=== PATIENT | female | born 1955 | race Caucasian/White ===

== ENCOUNTER → 2016-12-07 | Outpatient (CLI) | payer MEDICARE | END | disposition home or self-care (01) | LOC: GMAL 12:14 | PROVIDERS: ATTEND Family Medicine | DX: D53.9 Nutritional anemia, unspecified (principal) ==

== ENCOUNTER → 2016-12-11 | Outpatient (CLI) | payer BC, MEDICARE | END | disposition home or self-care (01) | LOC: GMA 18:33 | PROVIDERS: ATTEND Nurse Practitioner Family | DX: N39.0 Urinary tract infection, site not specified (principal) ==

== ENCOUNTER → 2017-05-05 | Outpatient (CLI) | payer MEDICARE | END | disposition home or self-care (01) | LOC: GMAL 10:42 | PROVIDERS: ATTEND Family Medicine | DX: D53.9 Nutritional anemia, unspecified (principal) ==

== ENCOUNTER 2017-05-21 22:40 | Emergency (ER) | payer MEDICARE ==
[2017-05-21 22:59] VITALS: TEMP 98.6; O2SAT 97
[2017-05-21] MEDS ORDERED: MORPHINE SULFATE INJ 10 MG/ML VIAL IM ONE (23:10)
[2017-05-21] MEDS ORDERED: MORPHINE SULFATE INJ 10 MG/ML VIAL ONE (23:10)
--- NOTE | 2017-05-21 23:13 | ED.PDOC ---
History of Present Illness - General Chief Complaint: Trauma Stated Complaint: fell on buttocks Time Seen by Provider: 05/21/17 23:10 Source: patient Exam Limitations: no limitations - History of Present Illness Initial Comments: Patient presents after falling from a standing position backwards and landing on her buttocks. She complains of tailbone pain just over the coccyx. No previous trauma to the area. She says that she had a "bone scan" recently and was told that she had osteoporosis. Pain is non-radiating, worse with movement, better with rest. Timing/Duration: 1/2 hour Severity: moderate Improving Factors: rest Worsening Factors: movement Associated Symptoms: denies symptoms Allergies/Adverse Reactions: Allergies NO KNOWN ALLERGY Allergy (Verified 05/21/17 22:51) Home Medications: Ambulatory Orders Amitriptyline HCl 10 mg PO BEDTIME 05/21/17 Aspirin [(None)] 325 mg PO QD 05/21/17 Metformin HCl [Metformin HCl ER] 500 mg PO BID 05/21/17 Oxcarbazepine [Trileptal] 150 mg PO BID 05/21/17 Pramipexole Dihydrochloride [Pramipexole Dihydrochlori] 0.5 mg PO BEDTIME Pravastatin Sodium 80 mg PO BEDTIME 05/21/17 Propranolol HCl 80 mg PO DAILY 05/21/17 Topiramate 300 mg PO BID 05/21/17 Review of Systems - Review of Systems Constitutional: States: no symptoms reported EENTM: States: no symptoms reported Respiratory: States: no symptoms reported Cardiology: States: no symptoms reported Gastrointestinal/Abdominal: States: no symptoms reported Genitourinary: States: no symptoms reported Musculoskeletal: States: see HPI Skin: States: no symptoms reported Neurological: States: no symptoms reported Endocrine: States: see HPI Hematologic/Lymphatic: States: no symptoms reported Past Medical History (General) - Patient Medical History Hx Stroke: Yes - 4 years ago Hx Hypertension: Yes Hx Diabetes: Yes Surgical History: appendectomy, Hysterectomy, other - Vaccination History Hx Tetanus, Diphtheria Vaccination: Yes Hx Influenza Vaccination: No Hx Pneumococcal Vaccination: No - Social History Hx Tobacco Use: No Hx Substance Use Treatment: No Family Medical History - Family History Mother Family History: Unknown Physical Exam - Physical Exam General Appearance: Alert Cardiovascular/Chest: regular rate, rhythm Gastrointestinal/Abdominal: normal bowel sounds, non tender, soft Back Exam: other - No vertebral spinous process tenderness. Mild TTP over coccyx. Abduction of the hips bilaterally elicits the pain. Straight leg raises are negative. Progress - Progress Progress: 05/22/17 00:46 CT Lumbar spine showed midline mildly displaced sacral fracture. Patient given crutches, pain meds, and follow up instructions. 05/22/17 00:48 Patient given RX for hydrocodone/APAP 5/325 1-2 tabs po q4-6 hours prn #45 Departure - Departure Clinical Impression: Fracture of sacrum Disposition: Discharge to Home or Self Care Condition: Good Departure Forms: ED Discharge - Pt. Copy, Patient Portal Self Enrollment Instructions: DI for Trauma Diet: resume usual diet Activity: as per physical therapy Referrals: Dennis Fortune III, MD [Primary Care Provider] - 1-2 Weeks Home Medications: Ambulatory Orders Amitriptyline HCl 10 mg PO BEDTIME 05/21/17 Aspirin [(None)] 325 mg PO QD 05/21/17 Metformin HCl [Metformin HCl ER] 500 mg PO BID 05/21/17 Oxcarbazepine [Trileptal] 150 mg PO BID 05/21/17 Pramipexole Dihydrochloride [Pramipexole Dihydrochlori] 0.5 mg PO BEDTIME Pravastatin Sodium 80 mg PO BEDTIME 05/21/17 Propranolol HCl 80 mg PO DAILY 05/21/17 Topiramate 300 mg PO BID 05/21/17 Additional Instructions: Follow up with Dr. Kimble on wednesday or wednesday. Use crutches for ambulation. Sit on a ringed pillow for comfort. Take medication as prescribed.
--- NOTE | 2017-05-21 23:48 | RAD ---
Examination: XR LUMBAR SPINE 2-3 VIEWS dated 05/21/2017 11:01 PM CDT History: fall Comparison: MRI of the lumbar spine from 2005 Technique: Frontal and lateral views of the lumbar spine with a coned down view of the lumbosacral junction. FINDINGS: Grade 1 anterolisthesis L5 on S1, slightly progressed from 2006. Suspect L5 spondylolysis. The remainder of the lumbar vertebral bodies demonstrate normal height and alignment. Mild disc space height loss L5-S1. Otherwise disc spaces are relatively well-preserved. IMPRESSION: Slightly progressed grade 1 anterolisthesis L5 on S1 with suspected L5 spondylolysis. Electronically signed by: Han Wilson MD 05/21/2017 11:46 PM CDT
--- NOTE | 2017-05-21 23:49 | RAD ---
Examination: XR SACRUM COCCYX 2 OR MORE VIEWS dated 05/21/2017 11:01 PM CDT History: fall Comparison: None Technique: Two views of the sacrum and coccyx FINDINGS AND IMPRESSION: There is slight lucency extending through the mid sacrum which may represent a nondisplaced fracture. CT may be useful for further evaluation. Electronically signed by: Han Wilson MD 05/21/2017 11:48 PM CDT
--- NOTE | 2017-05-22 00:30 | CT ---
EXAM: Lumbar Spine (accession [id number]), Pelvis (accession [id number]) CLINICAL INDICATION: 62-year-old female with possible sacral fracture. COMPARISON: None. TECHNIQUE: CT of the lumbar spine was performed without contrast. CT of the pelvis was performed without contrast. This exam was performed according to our departmental dose optimization program which includes use of automated exposure control, adjustment of the mA and/or kV according to patient size and/or use of iterative reconstruction technique. FINDINGS: Lumbar spine: Grade 1 anterolisthesis of L5 relative to S1 secondary to severe degenerative change of the bilateral facets at that level without findings to suggest clear pars interarticularis defects, however difficult to visualize secondary to severe facet degenerative change. There is normal alignment of the lumbar spine without fracture or subluxation. The facets are normal in alignment bilaterally. The posterior elements including the spinous processes are intact. Morphology and attenuation of the vertebral bodies and intervertebral disc spaces is within normal limits. The pre-and paravertebral soft tissues are within normal limits. Incidentally noted calcification within the lower pole of the bilateral kidneys compatible with nonobstructing calculus. Multiple bilateral renal cystic structures the largest of which measures up to 4.3 cm with Hounsfield units measuring less than 20 compatible with simple renal cysts. Pelvis: Soft tissues: The bowel is within normal limits. The appendix is within normal limits. No free air. Hazy appearance of the presacral soft tissues compatible with trace volume of hemorrhage secondary to mildly displaced fracture of S4, S5. IMPRESSION: 1. Hazy appearance of the presacral soft tissues compatible with trace volume of hemorrhage secondary to mildly displaced fracture of S4, S5. 2. Grade 1 anterolisthesis of L5 relative to S1 secondary to severe degenerative change of the bilateral facets at that level without findings to suggest clear pars interarticularis defects, however difficult to visualize secondary to severe facet degenerative change. 3. Bilateral large renal cysts, the largest of which measures up to 4.3 cm. Electronically signed by: Luna Steve MD 05/22/2017 12:29 AM CDT Workstation: [id number]
[2017-05-22] MEDS ORDERED: KETOROLAC TROMETHAMINE INJ 30 MG/ML VIAL IM ONE (00:45)
[2017-05-22 01:14] VITALS: BP 104/66
== END 2017-05-22 01:17 | disposition home or self-care (01) ==
LOC: ER 22:40
DX: S32.10XA Unspecified fracture of sacrum, initial encounter for closed fracture (principal); M81.0 Age-related osteoporosis without current pathological fracture; I10 Essential (primary) hypertension; E11.9 Type 2 diabetes mellitus without complications; Z86.73 Personal history of transient ischemic attack (TIA), and cerebral infarction without residual deficits; Z79.82 Long term (current) use of aspirin; Z79.899 Other long term (current) drug therapy; W19.XXXA Unspecified fall, initial encounter
CPT/HCPCS: 72100; 72131; 72192; 72220; J1885; J2270

== ENCOUNTER → 2017-05-26 | Outpatient (CLI) | payer MEDICARE ==
--- NOTE | 2017-05-29 15:27 | RAD ---
Examination: XR SACRUM COCCYX 2 OR MORE VIEWS dated 05/26/2017 3:11 PM CDT History: SACROCOCCYGEAL DISORDERS Comparison: 05/21/2017 Technique: Two views of the sacrum and coccyx FINDINGS AND IMPRESSION: There remains lucency extending through the mid sacrum and coccyx compatible with known sacral fracture. There is no change in alignment as compared to the prior exam. Unchanged grade 1 anterolisthesis L5 on S1. Electronically signed by: Han Wilson MD 05/29/2017 3:26 PM CDT
== END | disposition home or self-care (01) ==
LOC: RAD 15:04
PROVIDERS: ATTEND Orthopaedic Surgery
DX: M53.3 Sacrococcygeal disorders, not elsewhere classified (principal)

== ENCOUNTER → 2017-07-29 | Outpatient (CLI) | payer MEDICARE ==
--- NOTE | 2017-08-09 16:42 | MAM ---
EXAM DESCRIPTION: 3D Screening BILATERAL : Digital Mammography. CLINICAL HISTORY: 62 years Female SCREENING . No complaints. Remote family history of breast cancer. Postmenopausal. No HRT. Prior right breast biopsy. COMPARISON: 2-D digital screening bilateral study 07/28/2016 and 07/04/2015.. Report from prior examination also reviewed. TECHNIQUE: Bilateral CC and MLO projection full-field images, 3-D tomosynthesis digital mammographic technique. Also bilateral synthesized CC/ MLO full-field images. CAD not utilized. FINDINGS: The breast parenchymal density pattern is: Heterogeneously dense breast tissue, which may obscure small masses. No skin thickening or nipple retraction bilateral solitary microcalcifications. Bilateral vascular calcifications. No focal, stellate mass or density, focal asymmetry , and no suspicious microcalcifications bilaterally. Stable mammograms compared to prior studies, taking into account differences in mammographic technique IMPRESSION: BI-RADS CATEGORY: 2 - BENIGN FINDINGS. FOLLOW UP: Routine digital bilateral screening, one year interval from July 2017. Written communication explaining the IMPRESSION and follow-up, will be mailed to the patient and referring health care provider. According to the [employer], yearly mammograms are recommended starting at age 40 and continuing as long as a woman is in good health. Any breast change noted on a breast self-exam should be reported promptly to the patient's healthcare provider. Breast MRI is recommended for women with an approximately 20-25% or greater lifetime risk of breast cancer, including women with a strong family history of breast or ovarian cancer and women who have been treated for Hodgkin's disease. A negative mammographic report should not delay tissue diagnosis in patients with significant clinical history or physical findings. Extremely dense breast tissue limits the sensitivity of digital mammography. Electronically signed by: Pablo Villa MD 08/09/2017 4:41 PM [facility]
== END ==
LOC: MAMMO 14:49
PROVIDERS: ATTEND Family Medicine
DX: Z12.31 Encounter for screening mammogram for malignant neoplasm of breast (principal)
CPT/HCPCS: 77063; G0202

== ENCOUNTER → 2017-07-30 | Outpatient (CLI) | payer MEDICARE | LOC: GMAL 11:48 | PROVIDERS: ATTEND Family Medicine | DX: N39.0 Urinary tract infection, site not specified (principal) ==

== ENCOUNTER → 2017-11-08 | Outpatient (CLI) | payer MEDICARE | LOC: GMAL 11:01 | PROVIDERS: ATTEND Family Medicine | DX: D53.9 Nutritional anemia, unspecified (principal) ==

== ENCOUNTER → 2018-02-10 | Outpatient (CLI) | payer MEDICARE ==
--- NOTE | 2018-02-11 08:06 | MRI ---
Study: MRI of the Right Wrist. Indication: PAIN Technique: Multiplanar, multi sequence MRI of the right wrist was obtained without intravenous contrast. Comparison: None. Findings: Examination is mild to moderately motion degraded. Fairly pronounced tenosynovitis and tendinosis of the tendons of the first extensor tendon compartment noted extending from the level of the distal radial metadiaphysis to their insertion sites. Associated mild longitudinal fissuring of the tendons noted but without transection. Remaining extensor tendons, flexor tendons, flexor retinaculum, median nerve, and ulnar nerve are unremarkable. Degenerative signal scapholunate ligament and TFC without fluid filled tear of either structure. 2 mm negative ulnar variance. 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 Patchy areas of subchondral marrow change noted throughout the lunate at its proximal and distal aspects as well as the proximal capitate. Type II lunate present. Impression: Tenosynovitis, tendinosis, and longitudinal fissuring of the tendons of the first extensor tendon compartment. No transection or retraction. Scattered mild to moderate osteoarthritic changes throughout the wrist as detailed above. Degenerative signal scapholunate ligament and TFC without fluid-filled tear. No acute fracture. Electronically signed by: Deacon Miner MD 02/11/2018 8:05 AM CDT
== END ==
LOC: MRI 09:11
PROVIDERS: ATTEND Family Medicine
DX: M25.531 Pain in right wrist (principal); M77.8 Other enthesopathies, not elsewhere classified

== ENCOUNTER → 2018-02-15 | Outpatient (CLI) | payer MEDICARE | LOC: GMAL 14:24 | PROVIDERS: ATTEND Family Medicine | DX: N39.0 Urinary tract infection, site not specified (principal) ==

== ENCOUNTER → 2018-03-03 | Outpatient (CLI) | payer MEDICARE | LOC: GMAL 11:06 | PROVIDERS: ATTEND Family Medicine | DX: N39.0 Urinary tract infection, site not specified (principal) ==

== ENCOUNTER → 2018-03-08 | Outpatient (CLI) | payer MEDICARE ==
--- NOTE | 2018-03-08 15:31 | CT ---
EXAM DESCRIPTION: Abdomen/Pelvis w/wo Contrast: Computed Tomography. CLINICAL HISTORY: HEMATURIA COMPARISON: CT scan of the abdomen and pelvis with contrast 09/22/2010. TECHNIQUE: Spiral-axial scans at 5.0 mm intervals through the abdomen and pelvis before and after standard dose nonionic IV contrast. No oral contrast. Coronal and sagittal 2.0 mm reconstructions. 5 mm Delayed helical-axial scans, liver through the pubic symphysis. No adverse reactions. Total Exam DLP 1766.26 mGy - cm. This exam was performed according to our departmental CT dose-optimization program which includes automated exposure control, adjustment of the mA and/or kV according to patient size and/or use of iterative reconstruction technique; to reduce radiation dose to as low as reasonably achievable (ALARA). FINDINGS: Kidneys and Ureters: Multiple cysts are noted bilaterally. Most are stable since the prior study, some have enlarged, some have decreased in size. A cyst that measured over 2 cm in diameter on the prior study on the medial aspect of the upper pole of the left kidney has involuted significantly, and now demonstrates a partially calcified wall, with a V-shaped on the coronal image. Subcentimeter cyst on the posterior wall of the upper pole of the right kidney is stable in size with slight increase in density. 2, 2-millimeter stones in the inferior collecting system of the left kidney. 3 mm stone and 4.5 mm radiodense stone in the inferior collecting system of the right kidney. No hydronephrosis bilaterally. No perinephric fluid or enhancement. Bilateral ureters are unremarkable.. Pelvic Organs: Bilateral ureteral jets noted in the urinary bladder. No radiodense stones. Numerous calcifications abutting the bladder base and the vaginal cuff. No free fluid. Lung bases and pleura: Calcified nodule in the right lower lobe, otherwise negative. Liver, Stomach, Spleen, Adrenal Glands: Small sliding hiatal hernia. Solid organs are negative. Pancreas, Gallbladder, Ducts: Questionable nodularity of the anterior wall of the gallbladder. Normal caliber of the ducts. Pancreas is negative. Mesentery: Unremarkable. Aorta: Negative. Small Bowel: Minimal fluid distal segments but no obstruction. Terminal Ileum/Cecum: Distended by fecal material with TI normal caliber. Appendix normal caliber. Normal surrounding fatty density. Colon: Increased fecal matter in the descending colon and transverse colon and descending colon. Minimal redundancy of the sigmoid colon. Spine and Bony Pelvis: Minimal spondylosis included thoracic spine. Grade 1 L5-S1 spondylolisthesis with disc bulge. Possible foraminal stenosis bilaterally. Abdominal Wall/Back Soft Tissues: Negative. IMPRESSION: 1. Bilateral multiple cysts. Involuted cyst with calcification on the medial aspect of the upper pole of the left kidney. Bilateral nonobstructing renal stones in the lower poles of both kidneys. These stones are less than 5 mm diameter. No hydronephrosis or hydroureter. Consider urologic consult. 2. No radiodense stones in the urinary bladder. Questionable wall thickening; could represent cystitis. No fluid in the cul-de-sac. 3. No peritoneal or retroperitoneal mass or ascites. No free air. 4. Constipation proximal and mid colon. 5. Questionable nodularity of the anterior wall of the gallbladder. This could represent chronic cholecystitis or polyps. Correlate with clinical findings. 6. L5-S1 disc space loss, grade 1 anterolisthesis, and bilateral foraminal stenosis is likely. If patient has radiculopathy, consider follow-up MRI scan. Electronically signed by: Pablo Villa MD 03/08/2018 3:30 PM CDT
== END ==
LOC: CT 08:30
PROVIDERS: ATTEND Family Medicine
DX: R31.0 Gross hematuria (principal); N28.1 Cyst of kidney, acquired; K59.00 Constipation, unspecified

== ENCOUNTER → 2018-08-09 | Outpatient (CLI) | payer MEDICARE ==
--- NOTE | 2018-08-11 11:52 | MAM ---
EXAM DESCRIPTION: 3D Screening BILATERAL : Digital Mammography. CLINICAL HISTORY: 63 years Female SCREENING . No complaints or personal history of breast cancer. Remote family history of breast cancer. Mother with ovarian cancer. Childbirth. Postmenopausal. Right breast biopsy. Lifetime risk of developing breast cancer (Tyrer-Cuzick model)(%): 6.9. COMPARISON: Bilateral screening digital breast tomosynthesis 07/29/2017.. TECHNIQUE: Bilateral CC and MLO projection full-field images, digital tomosynthesis mammographic technique. Bilateral digital 2-D full-field MLO images. CAD not available for tomosynthesis or 2-D images. FINDINGS: The breast parenchymal density pattern is: Heterogeneously dense breast tissue, which may obscure small masses. No skin thickening or nipple retraction. Bilateral solitary microcalcifications. Calcifications are more prevalent in the dense fibroglandular tissues in the bilateral upper outer quadrants. No new focal, stellate mass or density, focal asymmetry , and no suspicious microcalcifications bilaterally. Stable mammograms compared to prior study. IMPRESSION: Benign exam. BIRAD CATEGORY: 2 BENIGN FINDINGS. RECOMMENDATIONS: FOLLOW UP: Routine digital bilateral mammographic screening, one year interval from July 2018. Written communication explaining the IMPRESSION and follow-up, will be mailed to the patient and referring health care provider. According to the [employer], yearly mammograms are recommended starting at age 40 and continuing as long as a woman is in good health. Any breast change noted on a breast self-exam should be reported promptly to the patient's healthcare provider. Breast MRI is recommended for women with an approximately 20-25% or greater lifetime risk of breast cancer, including women with a strong family history of breast or ovarian cancer and women who have been treated for Hodgkin's disease. A negative mammographic report should not delay tissue diagnosis in patients with significant clinical history or physical findings. Extremely dense breast tissue limits the sensitivity of digital mammography. Electronically signed by: Pablo Villa MD 08/11/2018 11:51 AM [employer]
== END ==
LOC: MAMMO 13:27
PROVIDERS: ATTEND Family Medicine
DX: Z12.31 Encounter for screening mammogram for malignant neoplasm of breast (principal)

== ENCOUNTER → 2018-09-27 | Outpatient (CLI) | payer MEDICARE | LOC: GMAL 11:41 | PROVIDERS: ATTEND Family Medicine | DX: E53.8 Deficiency of other specified B group vitamins (principal); R53.83 Other fatigue; E55.9 Vitamin D deficiency, unspecified ==

== ENCOUNTER → 2018-10-15 | Outpatient (CLI) | payer MEDICARE | LOC: GMATM 13:29 | PROVIDERS: ATTEND Nurse Practitioner Family | DX: N39.0 Urinary tract infection, site not specified (principal) ==

== ENCOUNTER → 2018-11-01 | Outpatient (CLI) | payer MEDICARE ==
--- NOTE | 2018-11-01 14:30 | US ---
EXAM DESCRIPTION: Abdomen,Complete: Ultrasound. CLINICAL HISTORY: ABD PAIN COMPARISON: None Available. TECHNIQUE: Transabdominal scannin-dimensional and Doppler modes. FINDINGS: Gallbladder: Normal size and echogenicity with no intraluminal stones or sludge. Wall thickness 1.6 mm is normal. No surrounding fluid. Nontender with transducer pressure. Common bile duct: 4.8 mm normal caliber. Liver: Increased echogenicity. Long axis of the right lobe 15.1 cm. No intrahepatic biliary dilatation. Normal flow direction hepatic and portal veins. Smooth capsule with no ascites. Pancreas: Not well visualized. Pancreatic duct not seen.. Abdominal aorta: Normal caliber from the proximal segment to the distal bifurcation. IVC: visualized; normal caliber. Spleen normal echogenicity; long axis measurement is 9.3 cm. Right kidney: 10.2 cm long axis. 2.1 cm thin-walled anechoic circumscribed cyst with posterior echo enhancement. Second cyst upper pole measures 3.5 cm with same imaging characteristics. 8.1 mm echogenic stone with posterior shadowing. Mild hydronephrosis. No perinephric fluid. Proximal ureter not visualized. Left kidney: 12.5 cm long axis. 4.1 cm thin-walled anechoic circumscribed cyst with posterior echogenic enhancement. 4.6 cm cyst with wall thickening and minimal calcification. Question of increased vascularity in one segment of the wall. No hydronephrosis or perinephric fluid. No echogenic stones. Proximal ureter not seen. IMPRESSION: 1. 4.6 cm cyst in the left kidney appears more complex with wall thickening, calcification and possible increased vascularity. Recommend evaluation with CT scan abdomen and pelvis without and with IV contrast. Second cyst in the left kidney and cyst in the right kidney are unremarkable. Mild hydronephrosis right kidney with 8 mm stone. Proximal ureters not visualized bilaterally. 2. Steatosis of the liver with no enlargement. Normal ducts in vascularity. Smooth capsule with no ascites. Gallbladder and common bile duct unremarkable. Pancreas not well visualized. Spleen is negative. Normal caliber of the abdominal aorta and IVC. Electronically signed by: Pablo Villa MD 11/01/2018 2:27 PM CDT
== END ==
LOC: US 08:23
PROVIDERS: ATTEND Family Medicine
DX: N13.2 Hydronephrosis with renal and ureteral calculous obstruction (principal); N28.1 Cyst of kidney, acquired

== ENCOUNTER → 2018-11-02 | Outpatient (CLI) | payer MEDICARE ==
--- NOTE | 2018-11-03 11:44 | RAD ---
EXAM DESCRIPTION: KUB CLINICAL HISTORY: LT FLANK PAIN, RENAL CALCULI COMPARISON: CT March 08, 2018 IMPRESSION: Single AP view of the abdomen obtained on 2 radiographs shows a nonspecific, nonobstructive bowel gas pattern. Moderate amount of formed fecal material throughout the colon consistent with constipation or obstipation partly extruded visualization of the kidneys. A 1 cm calcification overlying the right 12th rib probably represents right lower pole renal calculus. No calcifications are seen in the expected location of the ureters. Other smaller calcifications in the kidney seen on previous CT scan are not appreciated on plain film x-ray. Multiple vascular calcifications in the pelvis are seen. Facet arthropathy of the lower lumbar spine is noted. Electronically signed by: Jr Chong MD 11/03/2018 11:40 AM CDT
== END ==
LOC: RAD 14:27
PROVIDERS: ATTEND Urology
DX: N20.0 Calculus of kidney (principal); I70.90 Unspecified atherosclerosis

== ENCOUNTER → 2018-11-15 | Outpatient (CLI) | payer MEDICARE ==
--- NOTE | 2018-11-15 18:04 | CT ---
EXAM DESCRIPTION: Abdomen/Pelvis w/wo Contrast: Computed Tomography. CLINICAL HISTORY: COMPLEX RENAL CYST COMPARISON: None. TECHNIQUE: Spiral-axial scans at 5 x 5 mm intervals through the abdomen and pelvis before and after 100 mL nonionic IV contrast. No oral contrast. Coronal and sagittal 2.0 mm reconstructions. 5 mm Delayed helical-axial scans, liver through the pubic symphysis. No adverse reactions. Total Exam DLP 1604.77 mGy - cm. This exam was performed according to our departmental CT dose-optimization program which includes automated exposure control, adjustment of the mA and/or kV according to patient size and/or use of iterative reconstruction technique; to reduce radiation dose to as low as reasonably achievable (ALARA). FINDINGS: Kidneys and Ureters: Again noted is a left renal cyst inferior to the left hilum with a medial cleft abutting the renal pelvis with minimal enhancement. Also again noted are calcifications in the superior medial wall of the cyst. No rim enhancement or partial enhancement of the remainder of the cyst. Cyst measures 3.8 x 3.1 cm in the axial plane and 2.9 cm in the coronal plane. It has enlarged since the prior study. Mass effect on the major inferior left calyx has increased. 3 other cysts in the left kidney greater than 2 cm diameter. Approximately 5 or more smaller cysts. Tiny stone in the inferior collecting system approximately 9 millimeters in diameter with no hydronephrosis or perinephric fluid. No enhancement of the other cysts. 9 mm stone in the inferior collecting system of the right kidney along with other smaller stones. At least 2 cysts in the right kidney approximately 3 cm or greater diameter with multiple other smaller cysts. No hydronephrosis or perinephric fluid. Stable juxta cortical cyst which is denser than the nonenhanced kidney on the medial upper cortex. No perinephric fluid. Bilateral ureters unremarkable. Pelvic Organs: Bladder not significantly distended with minimal wall thickening. No stones in the nonenhanced urinary bladder or ureterovesical junctions. Normal appearance of the vaginal cuff. No free fluid. Bilateral adnexal calcifications with no free fluid. Lung bases and pleura: Negative. Liver, Stomach, Spleen, Adrenal Glands: Small cyst or nonenhancing object in the posterior right hepatic lobe on series 4, image 14 is stable. Stomach and other solid organs are negative. Pancreas, Gallbladder, Ducts: Unremarkable. Mesentery: Negative. Aorta: Unremarkable. Small Bowel: Normal caliber with mostly fluid in the ileum but no significant air-fluid levels or distention. Terminal Ileum/Cecum: Unremarkable. Normal caliber of the appendix. Normal density of the surrounding fat. , Now Colon: Moderate amount of fecal material throughout the colon. No distention. Spine and Bony Pelvis: Grade 1 spondylolisthesis L5-S1 with significant canal and foraminal narrowing stable. Abdominal Wall/Back Soft Tissues: Negative. IMPRESSION: 1. Cyst abutting the inferior left renal hilum, left renal pelvis proximal ureter and with mass effect and inferior calyces has enlarged slightly since the prior study, which appears to be mostly due to cyst fluid. No increase in calcification, enhancement, or other complications. Consider urologic consult. Other cysts in the kidneys bilaterally are stable. Enlarging stone in the inferior pole of the right collecting system with no obstruction now approximately 9 mm diameter. Bilateral ureters are also unremarkable. No stones in the urinary bladder. 2. Grade 1 spondylolisthesis L5-S1 stable with significant canal narrowing and possible bilateral foraminal stenosis. Correlate with symptoms of radiculopathy. Electronically signed by: Pablo Villa MD 11/15/2018 6:01 PM CDT
== END ==
LOC: LAB.O 08:15
PROVIDERS: ATTEND Family Medicine
DX: N28.1 Cyst of kidney, acquired (principal); M43.17 Spondylolisthesis, lumbosacral region

== ENCOUNTER → 2020-01-24 | Outpatient (CLI) | payer MEDICARE | LOC: GMAL 11:56 | PROVIDERS: ATTEND Family Medicine | DX: D51.3 Other dietary vitamin B12 deficiency anemia (principal); R53.83 Other fatigue; E55.9 Vitamin D deficiency, unspecified; E11.9 Type 2 diabetes mellitus without complications; E78.49 Other hyperlipidemia; Z79.899 Other long term (current) drug therapy ==

== ENCOUNTER 2020-03-07 14:23 | Emergency (ER) | payer MEDICARE, OTHER ==
--- NOTE | 2020-03-07 15:29 | RAD ---
EXAM DESCRIPTION: Chest,1 View CLINICAL HISTORY: fever, sore throat, body aches COMPARISON: 10 September 2012, 06 September 2018 TECHNIQUE: AP portable chest FINDINGS: The lungs are clear. There is no infiltrate or effusion. The heart is normal size. IMPRESSION: Normal portable chest Electronically signed by: Dennis Crawford MD 03/07/2020 3:28 PM CDT
--- NOTE | 2020-03-07 16:53 | ED.PDOC ---
History of Present Illness - General Chief Complaint: Respiratory Problem Stated Complaint: sore throat, difficulty breathing, malaise Time Seen by Provider: 03/07/20 14:36 Source: patient Exam Limitations: no limitations - History of Present Illness Initial Comments: The patient is a 65-year-old female presented emergency room secondary to a day or 2 of symptoms of fatigue, body aches, sore throat, a couple of episodes of vomiting with nausea and a couple of episodes of diarrhea. She had been around 7 grandchildren and the week before. No high spiking fever. No altered mental status. No chest pain or shortness of breath. No hypoxia. Timing/Duration: 24 hours Improving Factors: nothing Worsening Factors: nothing Associated Symptoms: loss of appetite, malaise, nausea/vomiting Allergies/Adverse Reactions: Allergies NO KNOWN ALLERGY Allergy (Verified 03/07/20 14:45) Home Medications: Ambulatory Orders Amitriptyline HCl [Amitriptyline Hydrochlori] 10 mg PO BEDTIME 05/21/17 Aspirin [(None)] 325 mg PO QD 05/21/17 Metformin HCl [Metformin HCl ER] 500 mg PO BID 05/21/17 Oxcarbazepine [Trileptal] 150 mg PO BID 05/21/17 Pramipexole Dihydrochloride [Pramipexole Dihydrochlori] 0.5 mg PO BEDTIME Pravastatin Sodium 80 mg PO BEDTIME 05/21/17 Propranolol HCl 80 mg PO DAILY 05/21/17 Topiramate 300 mg PO BID 05/21/17 Famotidine 20 mg PO DAILY #30 tab 03/07/20 Ondansetron Odt [Zofran ODT] 4 mg PO Q8HR PRN #5 tab 03/07/20 Review of Systems - Review of Systems Constitutional: States: fever, malaise EENTM: States: throat pain Respiratory: States: no symptoms reported Cardiology: States: no symptoms reported Gastrointestinal/Abdominal: States: nausea, vomiting Genitourinary: States: no symptoms reported Musculoskeletal: States: muscle pain Skin: States: no symptoms reported Neurological: States: headache Endocrine: States: no symptoms reported All other Systems: No Change from Baseline Past Medical History (General) - Patient Medical History Hx Stroke: Yes - 2012 Hx Congestive Heart Failure: No Hx Hypertension: Yes Hx Diabetes: Yes Surgical History: Hysterectomy - Vaccination History Hx Tetanus, Diphtheria Vaccination: Yes Hx Influenza Vaccination: Yes Hx Pneumococcal Vaccination: No - Social History Hx Tobacco Use: No Hx Alcohol Use: No Hx Substance Use Treatment: No - Activities of Daily Living Hospice Agency (if applicable):: None - Female History Patient : No Family Medical History - Family History Mother Family History: Unknown Physical Exam - Physical Exam General Appearance: Alert, Comfortable, No apparent distress Eye Exam: bilateral normal Ears, Nose, Throat: hearing grossly normal, pharyngeal erythema Neck: non-tender, full range of motion Respiratory: lungs clear, normal breath sounds, no respiratory distress, no accessory muscle use Cardiovascular/Chest: normal peripheral pulses, regular rate, rhythm, no edema Peripheral Pulses: radial,right: 2+, radial,left: 2+ Gastrointestinal/Abdominal: non tender, soft Rectal Exam: deferred Back Exam: no CVA tenderness, no vertebral tenderness Extremity: non-tender, normal inspection, no pedal edema, normal capillary refill Neurologic: waste and batting waste chopper II-XII nml as tested, alert, normal mood/affect, oriented x 3 Skin Exam: normal color Comments: Vital Signs - 24 hr 03/07/20 03/07/20 14:30 15:22 Temperature 98.0 F Pulse Rate [ 75 75 brachial] Respiratory 16 16 Rate Blood Pressure 146/85 [Right Arm] O2 Sat by Pulse 96 Oximetry Progress - Progress Progress: 03/07/20 16:52 The patient is a 65-year-old female presenting to emergency room with a constellation of symptoms and is most likely related to streptococcal pharyngitis. Patient is receiving a dose of Bicillin LA here for treatment of that. Also be written for short prescription Zofran and Pepcid to help with GI symptoms. She needs to maintain a bland diet and keep her self well-hydrated. She should consider herself contagious for at least the next 2 days. ER warnings are given. She tested negative for coronavirus today. Keep routine follow-up with primary care doctor otherwise. [email or web address] [id number] - Results/Orders Results/Orders: Laboratory Results - last 24 hr 03/07/20 03/07/20 14:45 14:50 Urine Color Yellow Urine Appearance Clear Urine pH 7.0 Ur Specific [place] 1.020 Urine Protein 30 Urine Glucose (UA) Negative Urine Ketones Negative Urine Blood Moderate H Urine Nitrite Negative Urine Bilirubin Negative Urine Urobilinogen 0.2 Ur Leukocyte Esterase Trace H Urine RBC 5-10 H Urine WBC 1-3 Ur Epithelial Cells 1-3 Urine Bacteria 0 Group A Strep Rapid Positive Chest x-ray appears benign. Respiratory panel appears benign. Departure - Departure Clinical Impression: Streptococcal pharyngitis Nausea & vomiting Qualifiers: Vomiting type: unspecified Vomiting Intractability: non-intractable Qualified Code(s): R11.2 - Nausea with vomiting, unspecified Disposition: Discharge to Home or Self Care Condition: Fair Departure Forms: ED Discharge - Pt. Copy, Patient Portal Self Enrollment Instructions: Sore Throat, Adult (DC) Diet: bland diet Activity: increase activity as tolerated Referrals: Dennis Fortune III, MD [Primary Care Provider] - 1-2 Weeks Prescriptions: Ondansetron Odt [Zofran ODT] 4 mg PO Q8HR PRN #5 tab PRN Reason: Nausea--Moderate Famotidine 20 mg PO DAILY #30 tab Home Medications: Ambulatory Orders Amitriptyline HCl [Amitriptyline Hydrochlori] 10 mg PO BEDTIME 05/21/17 Aspirin [(None)] 325 mg PO QD 05/21/17 Metformin HCl [Metformin HCl ER] 500 mg PO BID 05/21/17 Oxcarbazepine [Trileptal] 150 mg PO BID 05/21/17 Pramipexole Dihydrochloride [Pramipexole Dihydrochlori] 0.5 mg PO BEDTIME 05/21/17 Pravastatin Sodium 80 mg PO BEDTIME 05/21/17 Propranolol HCl 80 mg PO DAILY 05/21/17 Topiramate 300 mg PO BID 05/21/17 Famotidine 20 mg PO DAILY #30 tab 03/07/20 Ondansetron Odt [Zofran ODT] 4 mg PO Q8HR PRN #5 tab 03/07/20 Additional Instructions: The patient is a 65-year-old female presenting to emergency room with a constellation of symptoms and is most likely related to streptococcal pharyngitis. Patient is receiving a dose of Bicillin LA here for treatment of that. Also be written for short prescription Zofran and Pepcid to help with GI symptoms. She needs to maintain a bland diet and keep her self well-hydrated. She should consider herself contagious for at least the next 2 days. ER warnings are given. She tested negative for coronavirus today. Keep routine follow-up with primary care doctor otherwise.
[2020-03-07] MEDS ORDERED: PENICILLIN BENZATHINE 1.2 MU 1.2 MU/2 ML SYG IM ONE (16:55)
[2020-03-07 17:17] VITALS: BP 129/92; TEMP 98.1; O2SAT 98
== END 2020-03-07 17:05 | disposition home or self-care (01) ==
LOC: ER 14:23
DX: J02.0 Streptococcal pharyngitis (principal); R11.2 Nausea with vomiting, unspecified; Z86.73 Personal history of transient ischemic attack (TIA), and cerebral infarction without residual deficits
CPT/HCPCS: 71045; 81001; 87635; 87880; J0561

== ENCOUNTER → 2020-06-03 | Outpatient (CLI) | payer MEDICARE, OTHER | LOC: GMAL 17:10 | PROVIDERS: ATTEND Family Medicine | DX: E03.9 Hypothyroidism, unspecified (principal) ==

== ENCOUNTER → 2020-09-09 | Outpatient (CLI) | payer MEDICARE, OTHER | LOC: GMAL 14:17 | PROVIDERS: ATTEND Family Medicine | DX: E03.9 Hypothyroidism, unspecified (principal); E11.9 Type 2 diabetes mellitus without complications; Z79.899 Other long term (current) drug therapy; E78.49 Other hyperlipidemia ==

== ENCOUNTER → 2020-10-03 | Outpatient (CLI) | payer MEDICARE, OTHER | LOC: GMAL 16:55 | PROVIDERS: ATTEND Family Medicine | DX: N30.00 Acute cystitis without hematuria (principal) ==